=== PATIENT | male | born 1995 | race Hispanic/Latino ===

== ENCOUNTER 2017-03-30 09:58 | Emergency (ER) | payer OTHER ==
[~2017-03-30] VITALS: Ht 165.1 cm; Wt 117.2 kg
[~2017-03-30 09:58] MED LIST: IBUPROFEN800 MG PO
[2017-03-30 10:08] VITALS: BP 110/62
[2017-03-30] MEDS ORDERED: FLEXERIL10 MG PO (12:28)
[2017-03-30] MEDS ORDERED: MOTRIN800 MG PO (12:28)
== END 2017-03-30 12:44 | disposition home or self-care (01) ==
LOC: EME 09:58
DX: M54.5 Low back pain (principal); M79.1 Myalgia; F17.200 Nicotine dependence, unspecified, uncomplicated
CPT/HCPCS: 99281; 99283